=== PATIENT | female | born 1975 | race Caucasian/White ===

== ENCOUNTER 2019-05-15 05:38 | Day surgery (SDC) | payer OTHER ==
[~2019-05-15 05:38] MED LIST: Buffered Lidocaine 1% SYRIN* 1 ML/SYRINGE INTRADERM ONE
[2019-05-15] MEDS ORDERED: Lactated Ringers 1000 ML Bag* 1,000 ML IV SCH (06:00)
[2019-05-15] MEDS ORDERED: Famotidine IV* 10 MG/ML 2 ML (20 mg) IV ONE (06:00)
[2019-05-15] MEDS ORDERED: Dexamethasone IV* 4 MG/ML 1 ML (4 MG) IV SLOW PU ONE (06:00)
[2019-05-15] MEDS ORDERED: Dexamethasone IV* 4 MG/ML 1 ML (4 MG) ONE (06:25)
[2019-05-15] MEDS ORDERED: ceFAZolin 2 GM in NS PREMIX(*) 2 GM/100 ML BAG IVPB ONE (06:26)
[2019-05-15] MEDS ORDERED: Buffered Lidocaine 1% SYRIN* 1 ML/SYRINGE INTRADERM ONE (06:26)
[2019-05-15] MEDS ORDERED: Famotidine TAB* 20 MG ONE (06:26)
[2019-05-15] MEDS ORDERED: Famotidine IV* 10 MG/ML 2 ML (20 mg) ONE (06:50)
[2019-05-15] MEDS ORDERED: Midazolam* 1 MG/ML 5 ML VIAL (5 MG) ONE (07:05)
[2019-05-15] MEDS ORDERED: Propofol* 10 MG/ML 20 ML BTL ONE (07:05)
[2019-05-15] MEDS ORDERED: fentaNYL* 50 MCG/ML 2 ML VIAL (100 MCG VIAL) ONE (07:05)
[2019-05-15] MEDS ORDERED: Ondansetron INJ* 2 MG/ML VIAL ONE (07:05)
[2019-05-15] MEDS ORDERED: EPHEDrine (Pressors)* 50 MG/ML VIAL ONE (07:06)
[2019-05-15] MEDS ORDERED: Atracurium* 10 MG/ML 10 ML VIAL ONE (07:06)
[2019-05-15] MEDS ORDERED: ROPIVACAINE 5 MG/ML 30 ML BTL (0.5%) ONE (07:10)
[2019-05-15] MEDS ORDERED: Ropivacaine 0.2% * 2 MG/ML VIAL ONE ×2 (07:17→07:19)
[2019-05-15] MEDS ORDERED: Scopolamine 1.5 mg* PATCH TRANSDERM PRN (08:09)
[2019-05-15] MEDS ORDERED: fentaNYL* 50 MCG/ML 2 ML VIAL (100 MCG VIAL) IV PRN (08:09)
[2019-05-15] MEDS ORDERED: oxyCODONE/Acetamin 5/325 MG* TAB PO PRN (08:09)
[2019-05-15] MEDS ORDERED: HYDROmorphone INJ1* 1 MG/ML SYRINGE IV PRN (08:09)
[2019-05-15] MEDS ORDERED: Ondansetron INJ* 2 MG/ML VIAL IV PRN (08:09)
[2019-05-15] MEDS ORDERED: DiMENhydriNATE IV* 50 MG/ML VIAL IV PUSH PRN (08:09)
[2019-05-15] MEDS ORDERED: Naloxone* 0.4 MG/ML 1 ML VIAL IV PRN (08:09)
[2019-05-15 11:31] VITALS: BP 117/73
--- NOTE | 2019-05-15 21:05 | OP ---
OPERATIVE REPORT: DATE OF OPERATION: 05/15/19 DATE OF : 77 SURGEON: Mitchell Doran MD TECHNICAL STENOGRAPHER: DESTINEE Escudero Teleradiologist was needed for the entirety of the case to help with positioning, retraction, and was utilized throughout all portions of the case. ANESTHESIOLOGIST: Dr. Abraham. ANESTHESIA: General, interscalene block. PRE-OP DIAGNOSES: Left shoulder calcific tendinitis and partial thickness tear of the rotator cuff. POST-OP DIAGNOSES: Left shoulder calcific tendinitis and partial thickness tear of the rotator cuff, bicipital groove instability and partial thickness tearing of the subscapularis. OPERATIVE PROCEDURE: Left shoulder arthroscopy with: 1. Extensive glenohumeral debridement. 2. Subacromial decompression with acromioplasty. 3. Rotator cuff repair using REGENETEN patch. 4. Open biceps tenodesis. INDICATIONS: Debbie Nickerson is a 44-year-old female who had an injury several years ago initially when she was sledding, she had a lot of pain, she also had multiple injections. She was diagnosed with calcific tendonitis as well. She has had issues getting back to activities, has persistent pain, has failed conservative management and elected to proceed with surgical treatment. After extensive discussion of the risks and benefits of operative versus nonoperative treatment, she has elected to proceed with surgical treatment. Risks include but not limited to, bleeding, infection, damage to nerves, vessels, surrounding structures, wound nonhealing, persistent pain, need for surgery, scarring, stiffness, incomplete relief of symptoms and risk of anesthesia. COMPLICATIONS: None. ESTIMATED BLOOD LOSS: Minimal. IMPLANTS USED: One size large REGENETEN patch and 1 Q-FIX 2.8 mm. DESCRIPTION OF PROCEDURE: The patient was greeted in the preoperative area by the attending surgeon. The correct extremity was marked and consent was confirmed. The patient underwent interscalene nerve block by anesthesiologist. The patient was brought back to the operating suite where she was placed in a supine position on the operating table then underwent general anesthesia and endotracheal intubation after which she was placed in right lateral decubitus position with an axillary roll. All bony prominences were padded. She was secured with the pegboard. The left shoulder was draped unsterile with 10 pounds of traction. The left shoulder was prepped and draped in usual sterile fashion using chlorhexidine soap, scrub, and alcohol wipe, and a final prep of ChloraPrep. After appropriate surgical pause indicating side, site, procedure, and administration of antibiotics, the standard posterolateral portal was made sharply with a #15 blade. The scope was then positioned into the joint, once the joint was examined, there was abundant synovitic changes. The biceps anchor superior labrum was attached; however, the waldemar was damaged, there was partial thickness tearing of the subscap, was about 10% tearing, it still was grossly intact. The anterior portal was made in an outside-in fashion. Shaver was used to debride back the unstable flaps. The biceps was taken through range of motion. There is significant synovitis in the groove. There was also synovitis at the superior labral junction. Inferior recess is intact. The head was somewhat subluxed anteriorly, but the labrum is intact. The undersurface of the supraspinatus had some very mild tearing. Once the intraarticular work was clean, attention was directed to the subacromial space. The anterior, posterior, superior labrum were debrided back using shaver. Attention was then directed to the subacromial space. The lateral post was made in an outside fashion. Shaver was used to debride back the abundant bursal tissue that was very unscarred into the deltoid fascia. The area was very hyperemic as well. The undersurface of the acromion was then skeletonized using electrocautery device. The 4-0 oval micah was then used to do an acromioplasty. Attention was directed to the rotator cuff. The areas where there was presumed calcific lesion was then tenotomized using the 18-gauge needle, not a lot of the calcific area did flush back; however, there was some partial thickness of the rotator cuff. At this point, decision was made to treat the REGENETEN patch. Size large REGENETEN patch was then brought to the field, then placed under arthroscopic visualization, was secured medially with tendon gus laterally with peak gus. The graft was found to be well secured the wound was copiously irrigated. Attention was directed to the biceps. The bed was airplaned to the left side. The anterior aspect of the shoulder was prepped again using ChloraPrep. A #15 blade was used to make incision along the biceps tendon. Soft tissues were carefully dissected to expose the pec fascia, which was elevated and then the biceps was then palpated and brought to the wound and had abundant synovitis. The erythema that is present. The groove was then prepared in usual fashion using electrocautery device, red ball, rasp, and osteotome. The Q-FIX was then drilled unicortically and deployed with excellent purchase. The sutures were passed through the tendon in a Petros-Adrien type configuration. Excess stump was excised. The biceps were then secured. The wound was copiously irrigated with sterile saline. The anterior wound was closed in layers with 3-0 Monocryl. The portals were closed with 3-0 nylon. Sterile dressings were applied. A Cryo/Cuff as well as an UltraSling was placed. She was awoken from anesthesia and transferred to the PACU in stable condition. POSTOPERATIVE PLAN: She will be nonweightbearing in a sling for approximately 3 weeks, discharged on pain medications. DVT prophylaxis was considered but deferred due to no previous personal or family history. I will see the patient back in 10 to 14 days. She will start therapy in a week. [id number]/[facility] #: [id number] MISA
== END 2019-05-15 11:27 | disposition home or self-care (01) ==
LOC: OR 05:38
PROVIDERS: ATTEND Orthopaedic Surgery
DX: M75.32 Calcific tendinitis of left shoulder (principal); M75.112 Incomplete rotator cuff tear or rupture of left shoulder, not specified as traumatic; M75.22 Bicipital tendinitis, left shoulder; F41.9 Anxiety disorder, unspecified; G89.18 Other acute postprocedural pain
CPT/HCPCS: 81025; A9270-GY; C1713; C1776; J0690; J1100; J2250; J2405; J2704; J2795; J3010